=== PATIENT | female | born 1970 | race Caucasian/White ===

== ENCOUNTER 2022-12-30 18:07 | Observation (INO) ==
[2022-12-30 21:34] LABS: ABS Eosinophils 0.1 10^3/ul (0-0.6); ABS Lymphocytes 1.9 10^3/ul (1.0-4.8); ABS Monocytes 0.5 10^3/ul (0-0.8); ABS Neutrophils 2.4 10^3/ul (1.5-7.7); Hematocrit 49 % (35-47); Hemoglobin 16.2 g/dL (12.0-16.0); Lymphocyte % 38.2 %; Mean Corpuscular HGB Conc 33 g/dL (31-36); Mean Corpuscular Hemoglobin 30 pg (27-31); Mean Corpuscular Volume 92 fL (80-97); Mean Platelet Volume 8.5 fL (7.4-10.4); Nucleated Red Blood Cells % 0.1; Platelet Count 242 10^3/uL (150-450); Red Blood Count 5.34 10^6 /uL (3.70-4.87); Red Cell Distribution Width 14 % (10-15)
[2022-12-30 22:12] LABS: ALT 19 U/L (7-52); Albumin 4.6 g/dL (3.2-5.2); Albumin/Globulin Ratio 1.9 (1-3); Alkaline Phosphatase 66 U/L (35-149); Anion Gap 7 mmol/L (2-11); Blood Urea Nitrogen 15 mg/dL (6-24); CO2 Carbon Dioxide 27 mmol/L (22-32); Calcium 9.8 mg/dL (8.6-10.3); Chloride 103 mmol/L (101-111); Creatinine, Serum 0.68 mg/dL (0.51-0.95); Globulin 2.4 g/dL (2-4); Glucose 82 mg/dL (70-100); Sodium 137 mmol/L (135-145); eGFR CKD-EPI 103.4 (>60)
[2022-12-30] MEDS ORDERED: Iohexol 350 (CONTRAST) 500 ML MDV IV ONE (22:18)
[2022-12-30 23:50] LABS: Potassium Redraw 3.9 mmol/L (3.5-5.0)
[2022-12-31 05:40] LABS: Hematocrit 47 % (35-47); Hemoglobin 15.8 g/dL (12.0-16.0); Mean Corpuscular HGB Conc 34 g/dL (31-36); Mean Corpuscular Hemoglobin 30 pg (27-31); Mean Corpuscular Volume 91 fL (80-97); Mean Platelet Volume 8.1 fL (7.4-10.4); Platelet Count 244 10^3/uL (150-450); Red Blood Count 5.21 10^6 /uL (3.70-4.87); Red Cell Distribution Width 14 % (10-15); White Blood Count 4.6 10^3/uL (3.5-10.8)
[2022-12-31 06:09] LABS: Calcium 9.6 mg/dL (8.6-10.3); Creatinine, Serum 0.72 mg/dL (0.51-0.95); HDL Cholesterol 64.4 mg/dL; Potassium 3.8 mmol/L (3.5-5.0); eGFR CKD-EPI 99.3 (>60)
[2022-12-31 15:57] VITALS: BP 125/66
== END 2022-12-31 18:48 | disposition home or self-care (01) ==
LOC: ED 18:07 → EDHOLD 18:07 → SUATTDRO 12-31 00:13 → MEDTELE 12-31 02:36
PROVIDERS: ADMIT Internal Medicine; ATTEND Internal Medicine Hematology & Oncology